=== PATIENT | male | born 1975 | race Two or more races ===

== ENCOUNTER 2019-04-11 00:10 | Inpatient (IN) | payer OTHER ==
[~2019-04-11] VITALS: Ht 182.9 cm; Wt 130.6 kg
[2019-04-11] MEDS ORDERED: METOPROLOL ER-1 EACH (00:33)
--- NOTE | 2019-04-11 00:36 | NUR ---
SE RECIBE PTE ALERTA Y ORIENTADO POR ROMERO EN AMBULANCIA. PTE REFIERE PRESENTAR PALPITACIONES Y DOLOR EN ESPALDA UNA Y BAJA DESDE HOY EN LA NOCHE. PTE NIEGA PRESENTA DOLOR EN EL PECHO. PTE ES PRESENTADO A DR. FARRAR Y COLOCADO EN AREA DE CHEST PAIN CONECTADO EN MONITOR CARDIACO.
--- NOTE | 2019-04-11 02:49 | NUR ---
SE RECIVE POTE MASCULINO DEL AREA DE CPU ER,SE CONECTA A MONITOR CARDIACO JENNIFER Y COOOCADO EN CAMA #3 ,FUE EVALUADO POR ,SE FAITH MUETRAS Y SE ENVIAN A LABORATORIO,SE COLOCAN 3 H/L PATENTES LIBRES DE EDEMA Y ENROJECIMIENTO,SE ADMINISTRAN MEDICAMENTOS LOS CUALKES TOLERA,SE COLOCA TR1DIL @3,CARDIZEN @5,KCL@4,SE ORIENTA A PTE SOBRE AREA DE ICU,PTE HASTA EL MOMENTO COOPERADOR PHILLIP SE OBSERVA SOMNOLIENTO,SE MANTIENE CON V/M 50%,LE FUE REALIZADA X RAY,SE MANTIENE A PTE EN VIGILANCIA JENNIFER POR CAMBIOS.
--- NOTE | 2019-04-11 03:39 | NUR ---
1230AM SE REALIZA MUESTRA DE MARK DE FORMA ASEPTICA, PACIENTE TOLERA INTERBENCION DEL RN. 0200AM SE ORIENTA PACIENTE SOBRE TRATAMIENTO MEDICO EL CUAL REFIERE ENTENDER, SE ADMINISTRA MEDICAMENTO MARÍA ORDEN MEDICA, PACIENTE TOLERA INTERVENCION DEL RN. SE REALIZA TRASLADO A LA UNIDAD DE CRITICO EN ER. SE ENTREGA A KIANNA.
--- NOTE | 2019-04-11 05:36 | NUR ---
se comienza a bajar tridil para ser descontinuado.PTE SE REMUEVE EL VENTURY Y SE REORIENTA SOBRE IMPORTSNCIA DEL TRTAMIENTO Y PHILLIP PERMANECE SIN EL,SE MANTIENE EN VIGILAMCIA JENNIFER POR CAMBIOS.
--- NOTE | 2019-04-11 08:00 | NUR ---
SE RECIBE PTE DEL TURNO ANTERIOR EN CAMA CON BARANDAS ELEVADAS CON IVFS PATENTE DICK DE EDEMA Y ERITEMA CARDIZEM AT 5ML/HR V/M AL 50% SATURANDO 98%. SE MANTIENE EN OBSERVACION Y PENDIENTE A CONSULTA CON .
--- NOTE | 2019-04-11 08:09 | NUR ---
SE D/C TRIDIL POR ORDEN DE BREANA MONTENEGRO.
[2019-04-19] MEDS ORDERED: AMIODARONE HCL200 MG PO (09:21)
[2019-04-19] MEDS ORDERED: Coreg 3.125MG TABLET PO (09:21)
[2019-04-19] MEDS ORDERED: LANOXIN125 MCG PO (09:21)
[2019-04-19] MEDS ORDERED: NEURONTIN300 MG PO (09:21)
[2019-04-19] MEDS ORDERED: BUMETANIDE1 MG PO (09:21)
[2019-04-19] MEDS ORDERED: SPIRONOLACTONE25 MG PO (09:21)
== END 2019-04-19 11:44 | DRG 309 ==
LOC: ER 00:10 → ICU-2 12:20 → MEDJ 04-16 19:34
PROVIDERS: ADMIT Internal Medicine
PROC: BW24ZZZ Computerized Tomography (CT Scan) of Chest and Abdomen (ICD-10-PCS; principal; 2019-04-11)
PROC: B246ZZZ Ultrasonography of Right and Left Heart (ICD-10-PCS; 2019-04-11)
PROC: 4A033R1 Measurement of Arterial Saturation, Peripheral, Percutaneous Approach (ICD-10-PCS; 2019-04-11)
PROC: 3E0F7GC Introduction of Other Therapeutic Substance into Respiratory Tract, Via Natural or Artificial Opening (ICD-10-PCS; 2019-04-11)
PROC: BW40ZZZ Ultrasonography of Abdomen (ICD-10-PCS; 2019-04-11)
PROC: B54DZZZ Ultrasonography of Bilateral Lower Extremity Veins (ICD-10-PCS; 2019-04-11)
PROC: BV44ZZZ Ultrasonography of Scrotum (ICD-10-PCS; 2019-04-12)
PROC: 4A12X4Z Monitoring of Cardiac Electrical Activity, External Approach (ICD-10-PCS; 2019-04-16)
DX: I48.2 Chronic atrial fibrillation (principal); I24.9 Acute ischemic heart disease, unspecified; N17.8 Other acute kidney failure; J90 Pleural effusion, not elsewhere classified; I82.5Z3 Chronic embolism and thrombosis of unspecified deep veins of distal lower extremity, bilateral; I50.22 Chronic systolic (congestive) heart failure; Z79.01 Long term (current) use of anticoagulants; E11.65 Type 2 diabetes mellitus with hyperglycemia; Z79.4 Long term (current) use of insulin; Z95.0 Presence of cardiac pacemaker; E66.01 Morbid (severe) obesity due to excess calories; K76.89 Other specified diseases of liver; K76.0 Fatty (change of) liver, not elsewhere classified; I86.1 Scrotal varices; E87.6 Hypokalemia; N50.89 Other specified disorders of the male genital organs; M54.2 Cervicalgia; I11.0 Hypertensive heart disease with heart failure